=== PATIENT | male | born 1980 | race Caucasian/White ===

== ENCOUNTER 2020-11-22 15:04 | Emergency (ER) | payer SELFPAY ==
[2020-11-22 15:11] VITALS: BP 108/65; PULSE 50; RESP 18; TEMP 36.6; O2SAT 96; BMI 25.6
--- NOTE | 2020-11-22 15:21 | ED_ITS ---
HPI - Wound/Laceration General: Chief Complaint: Wound/Laceration Stated Complaint: LACERATION TO R WRIST Time Seen by Provider: 11/22/20 15:11 Source: patient Mode of arrival: ambulatory Limitations: no limitations History of Present Illness: HPI narrative: Patient is a 39-year-old male presents to ED today with complaints of a laceration to his right wrist that he sustained after moving a furnace. He states a portion of the hinge of the furnace lacerated his wrist. Onset (ago): hour(s) Extremity Location: Right: wrist Place: home Patient tetanus UTD: Yes Context: accidental Associated symptoms: Reports no associated symptoms Review of Systems Musc: Reports: extremity pain (R wrist) Skin/Breast: Reports: other (lacertion R wrist) Neuro: Denies: numbness in extremities, weakness in extremities or sensory changes Physical Exam Const: COMMON NORMALS: no acute distress, average body habitus, patient oriented x3, no limitations, healthy appearing, alert and well nourished Extremity: GENERAL: Yes normal exam except as noted OTHER: full ROM of wrist and all digits; radial pulse equal bilaterally; normal cap refill; pt with 6cm laceration to volar wrist; distal portion of laceration appears to have cut through muscle fascia but no damage to muscle belly noted; no vascular or tendon involvement Neuro: COMMON NORMALS: patient oriented x3, moves all extremities, no focal motor deficits and no sensory deficits noted SENSORIUM/ORIENTATION: Yes alert Skin: NARRATIVE SKIN EXAM: see extremity assessment Procedures Laceration Laceration 1: Site: upper extremity (volar wrist) Side (If applicable): right Size (cm): 6.0 Description: linear Depth: involves muscle layer (fascia only) Local Anesthetic: lidocaine 2% Amount of anesthesia used (mL): 4.0 Pre-repair: wound explored, irrigated extensively and deep structures intact Skin layer closed with: nylon Size (cm): 5-0 Number of sutures: 11 Technique: simple, interrupted Subcutaneous layer closed with: vicryl Size: 6-0 Number of sutures: 6 Technique: simple, interrupted Course Vital Signs: Vital signs: Vital Signs Temperature 97.9 F 11/22/20 15:11 Pulse Rate 56 L 11/22/20 15:26 Respiratory Rate 16 11/22/20 15:31 Blood Pressure 108/65 11/22/20 15:26 Pulse Oximetry 98 11/22/20 15:26 Discharge Plan Discharge Patient Disposition: Home Clinical Impression: Laceration of right wrist Qualifiers: Encounter type: initial encounter Qualified Code(s): S61.511A - Laceration without foreign body of right wrist, initial encounter Condition: Stable Prescriptions: New hydrocodone-acetaminophen 5-325 mg tablet 1 tab PO Q6H PRN (Reason: pain) Qty: 14 RF: 0 Keflex 500 mg capsule 500 mg PO Q6H 7 Days Qty: 28 RF: 0 No Action multivitamin Tablet 1 tab PO QAM RF: 0 Vitamin B-12 1 tab PO QAM RF: 0 zinc 1 cap PO QAM RF: 0 Discharge Orders: Discharge ED (Routine); Ordered 11/22/20 Ordered By: Lynn Dennison Patient Instructions: Suture Care (ED), Laceration (ED), Opioid Safety Activity Restrictions/Additional Instructions: [facility] is committed to fighting the nationwide opiate epidemic. We are providing ALL patients with information regarding opiate safety. If you received opiate pain medication during your stay or if you received a presc ription for opiate pain medication-please review this handout. If not, you may disregard. Thank you. Keep wound clean with warm soap and water several times daily. Begin your antibiotics immediately. Monitor for signs of infection such as redness, red streaking up your arm, swelling, increased pain, or drainage. Please seek medical re-evaluation if these occur. Sutures need to be removed in 10 days. Coding Level of Care Code ED Supervisor Crack Off for Salvador Coles
[2020-11-22 15:26] VITALS: BP 108/65; PULSE 56; RESP 14; O2SAT 98
[2020-11-22 15:31] VITALS: RESP 16
[2020-11-22] MEDS: morphine 4 mg/mL SDV 1 mL IM (15:31)
== END 2020-11-22 16:38 | disposition home or self-care (01) ==
PROVIDERS: Emergency Provider Physician Assistant
DX: S61.511A Laceration without foreign body of right wrist, initial encounter (principal); W26.9XXA Contact with unspecified sharp object(s), initial encounter
CPT/HCPCS: 12032; 99283; J2270